=== PATIENT | male | born 2000 | race African-American/Black ===

== ENCOUNTER 2024-07-08 16:50 | Emergency (ER) | payer BC, SELFPAY ==
[2024-07-08 16:54] VITALS: BP 134/97; PULSE 129; RESP 20; TEMP 37; O2SAT 100; BMI 27.9
--- NOTE | 2024-07-08 17:02 | ED_ITS ---
HPI - General Adult General Chief complaint: Altered Mental Status Stated complaint: ?on drugs Time Seen by Provider: 07/08/24 17:13 Source: patient, family (Patient's mother) and RN notes reviewed Mode of arrival: ambulatory Limitations: no limitations History of Present Illness ED Provider: Neno MENDES narrative: 23-year-old male with no diagnosed medical history presents for evaluation of psychosis. The patient admits to using marijuana from an online service last . He reports that he has used this service in the past but used a different product that he smoked He reports feeling abnormally high on , 5 days ago Since that time, the patient has been paranoid however this has improved but he has not been sleeping Per his mother he has been ?more talkative. The patient denies any physical complaints He is not depressed or having any suicidal thoughts He admits that he is not sleeping well He denies any other substance abuse other than daily marijuana use Related Data Home Medications ?Medication ?Instructions ?Recorded ?Confirmed No Known Home Meds 07/08/24 07/08/24 Allergies Allergy/AdvReac Type Severity Reaction Status Date / Time No Known Allergies Allergy Verified 07/08/24 16:54 Review of Systems 2 Constitutional: Constitutional: Denies anorexia, Denies body ache(s), Denies chills and Denies fever(s) Eyes: Eyes: Denies blurry vision ENT: Denies vertigo Cardiovascular: Cardiovascular: Denies chest pain and Denies dyspnea Respiratory: Respiratory: Denies cough and Denies dyspnea Gastrointestinal: Gastrointestinal: Denies abdominal pain, Denies nausea and Denies vomiting Musculoskeletal: Musculoskeletal: Denies back pain Integumentary/Breasts: Skin/Breast: Denies rash Neurologic: Reports behavioral changes and Denies vertigo Psychiatric: Psychiatric: Reports anxiety, Reports behavioral changes, Denies change in appetite, Denies depression, Denies difficulty concentrating, Denies hopelessness, Denies irritability, Denies mood swings, Denies panic attacks, Reports paranoia, Denies visual hallucinations, Denies tactile hallucinations, Denies homicidal ideation and Denies suicidal ideation PMFSH Social History Social History Smoked in Last 30 Days: Yes Use of substances other than those prescribed or required for medical reasons: Yes Substance Use Type: Marijuana Substance Use Frequency: Chronic Longstanding Last Used Substance: Just Prior to Admission Advance Directives: No Advance Directives Information Provided: No Physical Exam ED Vital Signs: Vital Signs - 24 hr 07/08/24 16:54 07/08/24 17:21 07/08/24 19:14 Temperature 98.6 F 98.9 F 98 F Pulse Rate 129 H 132 H 105 H Respiratory Rate 20 16 16 Blood Pressure 134/97 H 156/95 H 151/83 H Pulse Oximetry 100 100 99 Oxygen Delivery Method Room Air Room Air Room Air 07/08/24 19:14 Temperature 98.3 F Pulse Rate 105 H Respiratory Rate 16 Blood Pressure 151/83 H Pulse Oximetry 99 Oxygen Delivery Method Room Air BMI result Body Mass Index 27.9 Const General: healthy appearing, comfortable, no acute distress, alert and awake Nutritional Appearance: well nourished Orientation/consciousness: patient oriented x3 HENMT Head: Yes normocephalic and Yes atraumatic Throat: Yes posterior oropharynx normal Eyes Eyelids: Yes eyelids normal Conjunctivae: conjunctivae normal Sclerae: sclerae normal Corneas: corneas normal Pupils: Equal, round and reactive pupils present EOM: EOMs intact bilaterally Neck Neck: Yes full ROM Resp Effort & Inspection: normal respiratory effort, able to speak in complete sentences and not labored Cardio Rate: regular rate Rhythm: regular rhythm GI Inspection: No distended Palpation (GI): Soft to palpation, not firm, nontender, no guarding and not rigid Skin General skin exam: elasticity normal Neuro General: patient oriented x3 Cranial nerves: Yes CN's II-XII intact bilaterally, Yes Equal, round and reactive pupils present and Yes Bilaterally intact EOM present Cognition (Neuro): normal cognition Extrem Other: Moving all extremities well without any obvious deformities Psych Appearance: well kempt Mental Status: mental status grossly normal Speech and movement: Pressured speech present Affect: normal affect Attitude: cooperative Thought process: Normal thought process present Thought content: Normal thought content present, suicidality, no homicidality and no delusions Insight: Fair insight present (Psych) Judgement: Fair judgement present (Psych) Course Course Course Narrative: RME: 23-year-old male presents to ED for new onset psychosis since after smoking weed that was shipped from online. Patient has auditory hallucinations. Mother states patient has been up for 3 days and being more talkative and not making sense. Patient is calm in during triage. Patient is brought back to pod Reevaluation(s) Reevaluation #1: Discussed with the care team, who felt the patient she had a least be staying overnight which I agree with. Again, it is unclear if this is cannabis induced psychosis versus a new diagnosis of bipolar or schizoaffective disorder. Time: 19:29 Medical Decision Making Medical Decision Making [facility] Narrative: 23-year-old male with no significant past medical history presents for evaluation of an acute psychotic episode. His symptoms have been present for 5 days but do appear to be improving per his mother. The patient no longer has any paranoia which she had initially on . He does seem somewhat manic with pressured speech. However he is calm and cooperative and in redirectable. The patient denies any depression, suicidal ideation or hallucinations. He was medically cleared and seen by the care team. It is still somewhat unclear if this is a cannabis induced psychosis or a new onset schizophrenia or bipolar disorder. I discussed with the patient's mother that I recommended an inpatient psychiatric stay to be evaluated by Psychiatry and possibly start on medications. The patient's mother is adamant the patient will not be staying over and does not want to start any medication at this time. The patient is deferring to his mother's wishes. Given that he is not suicidal, depressed at all and does not appear to be a danger to himself or anybody else, the patient will be discharged into the custody of his mother. They were given resources as I strongly recommended a psychiatric evaluation. I do feel that hospitalization will expedite his diagnosis and workup, however do not feel that he is a threat requiring a section 12 to be held against his well. I discussed with the mother at length of return precautions of went to bring the patient back to the ER for more emergent psychiatric evaluation Differential Diagnosis Differential Diagnoses: The differential diagnosis associated with the presentation includes Cannabis induced psychosis Schizophrenia Bipolar disorder Acute davey Admission/Observation Consideration of admission/observation: Escalation of care including admission/observation considered Lab Data [facility] Lab Attestation statement: I reviewed the patient's lab results. No leukocytosis or anemia. Normal platelet count. No electrolyte abnormalities. Random glucose elevated to 133. The patient has a mild transaminitis of unclear etiology. There was no abdominal pain or right upper quadrant tenderness to suggest biliary disease. Bilirubin within normal limits. 07/08/24 17:33 07/08/24 17:33 Labs: Lab Results 07/08/24 07/08/24 Range/Units 17:28 17:33 WBC 5.4 (4.8-10.8) X10*3/uL RBC 4.97 (4.60-5.80) X10*6/uL Hgb 14.8 (14.0-18.0) g/dl Hct 43.5 (42.0-52.0) % MCV 87.5 (80.0-98.0) fL MCH 29.8 (27.0-33.0) pg MCHC 34.0 (31.0-36.0) g/dl RDW 13.2 (11.0-16.0) % Plt Count 249 (160-400) X10*3/uL MPV 10.2 (9.4-12.4) fL Immature Gran % (Auto) 0.4 (0.0-0.4) % Neut % (Auto) 71.2 (45-73) % Lymph % (Auto) 17.9 L (20-40) % [place] % (Auto) 8.8 (2-11) % Eos % (Auto) 1.1 (0-4) % Baso % (Auto) 0.6 (0-2) % Lymph # (Auto) 1.0 L (1.2-4.9) X10*3/uL [place] # (Auto) 0.5 (0.1-1.2) X10*3/uL Eos # (Auto) 0.1 (0.0-0.4) X10*3/uL Baso # (Auto) 0.0 (0.0-0.2) X10*3/uL Abs Immat Gran (auto) 0.02 (0.00-0.03) X10*3/uL Absolute Neuts (auto) 3.9 (2.0-8.3) x10*3/uL Absolute Nucleated RBC 0.000 (0.0-0.012) X10*3/uL Nucleated RBC % (auto) 0.0 (0.0-0.2) /100WBC Sodium 140 (135-145) mmol/L Potassium 4.1 (3.3-5.1) mmol/L Chloride 105 (96-108) mmol/L Carbon Dioxide 27 (22-29) mmol/L Anion Gap 12 (12-20) BUN 12 (9-16) mg/dL Creatinine 1.05 (0.5-1.4) mg/dL Estim Creat Clear Calc 119.6 Estimated GFR > 60 Random Glucose 133 H (60-115) mg/dL Calcium 9.5 (8.4-10.2) mg/dL Total Bilirubin 0.4 (0.0-1.0) mg/dL AST 333 H (5-37) U/L ALT 91 H (0-40) U/L Alkaline Phosphatase 57 (39-117) U/L Total Protein 7.4 (6.5-8.0) g/dL Albumin 4.7 (3.5-5.0) g/dL Urine Color Yellow Urine Appearance Clear Urine pH 6.0 (5.0-9.0) Ur Specific [place] 1.015 (1.005-1.025) Urine Protein Trace (Neg-Trace) mg/dL Urine Glucose (UA) Negative (Negative) mg/dL Urine Ketones Negative (Negative) mg/dL Urine Blood Moderate (2+) H (Negative) Urine Nitrite Negative (Negative) Ur Leukocyte Esterase Negative (Negative) Urine RBC 11-20 H (0-2) /HPF Urine WBC 0-5 (0-5) /HPF Ur Squamous Epith Cells 0-2 (0-2) /HPF Urine Bacteria None Seen (None Seen) Hyaline Casts 0-2 (0-2) /LPF Urine Opiates Screen Not Detected (Not Detect) Ur Buprenorphine Scrn Not Detected (Not Detect) ng/mL Ur Oxycodone Screen Not Detected (Not Detect) ng/mL Urine Methadone Screen Not Detected (Not Detect) ng/mL Urine Fentanyl Screen Not Detected (Not Detect) Ur Barbiturates Screen Not Detected (Not Detect) Ur Phencyclidine Scrn Not Detected (Not Detect) Ur Amphetamines Screen Not Detected (Not Detect) U Benzodiazepines Scrn Not Detected (Not Detect) Urine Cocaine Screen Not Detected (Not Detect) U Marijuana (THC) Screen POSITIVE H (Not Detect) Ethyl Alcohol < 10 mg/dL Discharge Plan Discharge Clinical Impression: Acute psychosis Patient Disposition: Home, Self-Care Instructions: Psychotic Disorder (ED) Additional Instructions: It is possible that your psychosis is related to marijuana. It is also possible that in his due to an underlying psychiatric illness such as schizophrenia or bipolar disorder It is very important that you were seen by a psychiatrist Return for new or worsening symptoms Follow-up with your primary doctor Prescriptions: No Action No Known Home Meds Interventions: ED Discharge Assessment Last Done: 07/08/24 19:14 Discharge Date/Time: 07/08/24 19:43 Print Language: Swedish
[2024-07-08 17:21] VITALS: BP 156/95; PULSE 132; RESP 16; TEMP 37.2; O2SAT 100
--- NOTE | 2024-07-08 17:25 | PC.NURSE ---
Brayden comes in from home today accompanied by mom. Pts mom reports that patient smoked something on and since then he has been messed up . Pt reports not sleeping and being hyperverbal over the past few days. Pt is calm and cooperative, offering no complaints to this RN , Patient aware of plan of care for medical clearance and care team carter
[2024-07-08 17:37] LABS: Appearance Urine Clear; Color Urine Yellow; Glucose Urine UA Negative (Negative); Leukocyte Esterase Urine Negative (Negative); Nitrite Urine Negative (Negative); Specific Gravity - Urine 1.015 (1.005-1.025); UMIC TRIGGER UACC YES; Urine Blood Moderate (2+) (Negative); Urine Ketones Negative (Negative); Urine Protein Trace mg/dL (Neg-Trace)
[2024-07-08 17:40] LABS: MANUAL DIFF FLAG NO
[2024-07-08 17:41] LABS: Bacteria Urine None Seen (None Seen); Hyaline Casts Urine 0-2 /LPF (0-2); Squamous Epithelial Cell Urine 0-2 /HPF (0-2); WBC Urine 0-5 /HPF (0-5)
[2024-07-08 17:41] LABS: Basophils Percent Auto 0.6 % (0-2); Eosinophils Absolute Auto 0.1 X10*3/uL (0.0-0.4); Eosinophils Percent Auto 1.1 % (0-4); Hematocrit 43.5 % (42.0-52.0); Hemoglobin 14.8 g/dl (14.0-18.0); Imm Gran Abs Auto 0.02 X10*3/uL (0.00-0.03); Imm Gran Pct Auto 0.4 % (0.0-0.4); Lymphocytes Percent Auto 17.9 % (20-40); Mean Corpuscular Hemoglobin 29.8 pg (27.0-33.0); Mean Corpuscular Volume 87.5 fL (80.0-98.0); Mean Platelet Volume 10.2 fL (9.4-12.4); Monocytes Absolute Auto 0.5 X10*3/uL (0.1-1.2); Monocytes Percent Auto 8.8 % (2-11); Neutrophils Absolute Auto 3.9 x10*3/uL (2.0-8.3); Neutrophils Percent Auto 71.2 % (45-73); Platelet Count 249 X10*3/uL (160-400); Red Blood Count 4.97 X10*6/uL (4.60-5.80); Red Cell Distribution Width 13.2 % (11.0-16.0); White Blood Count 5.4 X10*3/uL (4.8-10.8)
[2024-07-08 17:50] LABS: Amphetamine Screen Urine Not Detected (Not Detect); Barbiturates, Urine Not Detected (Not Detect); Benzodiazepines Screen Urine Not Detected (Not Detect); Buprenorphine Scr Not Detected (Not Detect); Cannabinoid Screen Urine POSITIVE (Not Detect); Cocaine Screen Urine Not Detected (Not Detect); Fentanyl, urine Not Detected (Not Detect); Methadone Screen, Urine Not Detected (Not Detect); Opiate Screen Urine Not Detected (Not Detect); Oxycodone Screen Urine Not Detected (Not Detect); Phencyclidine Screen Urine Not Detected (Not Detect)
[2024-07-08 18:29] LABS: Alanine Aminotransferase 91 U/L (0-40); Albumin Level 4.7 g/dL (3.5-5.0); Anion Gap 12 (12-20); Aspartate Amino Transferase 333 U/L (5-37); Bilirubin Total 0.4 mg/dL (0.0-1.0); Blood Urea Nitrogen 12 mg/dL (9-16); Calcium 9.5 mg/dL (8.4-10.2); Carbon Dioxide 27 mmol/L (22-29); Chloride 105 mmol/L (96-108); Creatinine Clr Calc Pharmacy 119.6; Estimated Glomerular Filt Rate > 60; Ethanol < 10 mg/dL; Glucose Random 133 mg/dL (60-115); Potassium 4.1 mmol/L (3.3-5.1); Sodium 140 mmol/L (135-145); Total Protein 7.4 g/dL (6.5-8.0)
[2024-07-08 18:54] LABS: Alkaline Phosphatase 57 U/L (39-117)
[2024-07-08 19:14] VITALS: BP 151/83; PULSE 105; RESP 16; TEMP 36.6; TEMP 36.8; O2SAT 99
== END 2024-07-08 19:43 | disposition home or self-care (01) ==
PROVIDERS: Physician Assistant; Emergency Provider Internal Medicine
DX: F23 Brief psychotic disorder (principal); F12.90 Cannabis use, unspecified, uncomplicated
CPT/HCPCS: 36415; 80053; 80307; 81001; 85025; 99284; S9485

== ENCOUNTER 2024-07-10 09:33 | Inpatient (IN) | payer OTHER, SELFPAY ==
--- NOTE | ~2024-07-10 | US_ITS ---
EXAMINATION: US ABDOMEN LIMITED HISTORY: Elevated LFTs TECHNIQUE: Real-time grayscale ultrasound imaging of the right upper quadrant was performed and images were reviewed. COMPARISON: There are no prior studies for comparison. FINDINGS: Liver: The liver is normal in size. The liver demonstrates normal homogeneous echotexture. No focal mass or intrahepatic biliary ductal dilatation is identified. There is normal hepatopedal flow in the portal vein. Gallbladder and biliary tree: The gallbladder is unremarkable, without evidence of calculi, wall thickening, or pericholecystic fluid. There is no sonographic Mejia sign. The common bile duct is normal in caliber measuring 3 mm. Right Kidney: The right kidney measures 10.1 cm in length. The right kidney is unremarkable, without evidence of masses, hydronephrosis, or calculi. Pancreas: The pancreatic head, neck, and body are unremarkable. The pancreatic tail is obscured by bowel gas. Abdominal aorta and inferior vena cava: The visualized portions of the abdominal aorta and inferior vena cava are normal in caliber. There is no free fluid in the right upper quadrant. US/US abdomen limited IMPRESSION: Unremarkable right upper quadrant ultrasound. Electronically signed by: Ciro Campa MD 07/10/2024 01:25 PM EDT
[2024-07-10 09:40] VITALS: BP 165/87; PULSE 130; RESP 18; TEMP 37.1; O2SAT 99; BMI 27.4
--- NOTE | 2024-07-10 09:44 | ECG_ITS ---
Test Reason : tachycardia Blood Pressure : */* mmHG Vent. Rate : 115 BPM Atrial Rate : 115 BPM P-R Int : 118 ms QRS Dur : 72 ms QT Int : 312 ms P-R-T Axes : 86 74 29 degrees QTcB Int : 431 ms Sinus tachycardia Otherwise normal ECG No previous ECGs available Referred By: Generic ED Physician Electronically Signed By: SEGUN JOHNSON
--- NOTE | 2024-07-10 09:53 | ED_ITS ---
HPI - General Adult General Chief complaint: Recheck/Abnormal Lab/Rx Stated complaint: Insomnia, heart racing Time Seen by Provider: 07/10/24 09:53 Source: patient and family (patient's mother) Mode of arrival: ambulatory Limitations: no limitations History of Present Illness ED Provider: Rosangela Betancourt PA-C HPI narrative: Patient is a 23 year old assigned male at with a history of marijuana use presenting to the emergency department today with inability to sleep and pressured speech. Patient states that he smoked weed on 07/03/2024 that he believes to be different than the usual weed he smokes. He states that ever since then he has been unable to sleep and has been acting differently per his mother. Per his mother has had pressured speech, speaking rapidly, and acting unusual. Patient denies any thoughts of hurting himself or others, dizziness, lightheadedness, abdominal pain, nausea, vomiting, fever, chills, blurry vision, double vision, loss of vision, chest pain, difficulty breathing, shortness of breath, back pain, night sweats, pain with urination, increased urinary frequency, increased urinary urgency, blood in his urine or stool, syncope or a near syncopal episode, recent trauma or falls, bowel incontinence, bladder incontinence, or any other complaints at this time. Onset (ago): week(s) (1) Relieving factors: none Exacerbating factors: none Associated symptoms: denies other symptoms Treatments prior to arrival: other (Benadryl with no relief) Related Data Home Medications ?Medication ?Instructions ?Recorded ?Confirmed diphenhydramine HCl 12.5 mg/5 mL 25 mg PO BEDTIME PRN Sleep 07/10/24 07/10/24 oral liquid multivitamin 1 tab PO DAILY 07/10/24 07/10/24 Allergies Allergy/AdvReac Type Severity Reaction Status Date / Time No Known Allergies Allergy Verified 07/10/24 09:43 Review of Systems 2 Constitutional: Constitutional: Reports no additional constitutional complaints, Denies chills, Denies fever(s) and Denies night sweats Eyes: Eyes: Reports no additional eye complaints, Denies blurry vision, Denies change in vision, Denies diplopia, Denies eye discharge, Denies loss of vision and Denies eye pain ENT: Denies dizziness Cardiovascular: Cardiovascular: Reports no additional cardiovascular complaints, Denies chest pain, Denies lightheadedness, Denies Loss of Consciousness and Denies dyspnea Respiratory: Respiratory: Reports no additional respiratory complaints and Denies dyspnea Gastrointestinal: Gastrointestinal: Reports no additional gastrointestinal complaints, Denies abdominal pain, Denies melena, Denies hematochezia, Denies change in bowel habits and Denies change in stool character Genitourinary: Genitourinary: Reports no additional male genitourinary complaints, Denies hematuria, Denies oliguria, Denies difficulty urinating, Denies dysuria, Denies urinary frequency, Denies urinary hesitancy, Denies urinary incontinence and Denies urinary urgency Musculoskeletal: Musculoskeletal: Reports no additional musculoskeletal complaints, Denies numbness and Denies tingling Neurologic: Reports behavioral changes, Denies dizziness, Denies loss of vision, Denies numbness and Denies tingling Psychiatric: Psychiatric: Reports abnormal sleep pattern, Reports behavioral changes and Reports difficulty concentrating Comments: pressured speech Endocrine: Endocrine: Reports no additional endocrine complaints Hematologic/Lymphatic: Hematologic/Lymphatic: Reports no additional hematologic/lymphatic complaints Allergic/Immunologic: Allergic/Immunologic: Reports no additional allergic/immunologic complaints PMFSH Past Medical History Attestation statement: The following information was validated with the patient. (all information validated with the patient's mother) Source: old records reviewed, obtained from family (patient's mother provided additional history and confirmed the history provided by the patient) and nursing notes reviewed Social History Social History Patient Tobacco Use Status: Never used Tobacco Smoked in Last 30 Days: No Use of substances other than those prescribed or required for medical reasons: Yes Substance Use Type: Marijuana Substance Use Frequency: Chronic Longstanding Last Used Substance: Unknown Any prior treatment program specific to substance use: No Advance Directives: No Advance Directives Information Provided: Yes Nutrition Risks: No Nutritional Risk Physical Exam ED Vital Signs: Vital Signs - 24 hr 07/10/24 09:40 07/10/24 12:54 Temperature 98.7 F 98.5 F Pulse Rate 130 H 103 H Respiratory Rate 18 16 Blood Pressure 165/87 H 111/67 Pulse Oximetry 99 100 Oxygen Delivery Method Room Air Room Air BMI result Body Mass Index 27.4 Const General: cooperative, no acute distress, alert and awake Nutritional Appearance: well nourished Orientation/consciousness: patient oriented x3 HENNY Head: Yes normal to inspection and Yes atraumatic Ears: hearing grossly normal bilaterally and external ears normal General nose exam: Normal external nose present, no nasal discharge noted and no epistaxis Face and sinus: Yes normal facial exam, No abrasion and No laceration Mouth: Normal oral and palatal mucosa present, no drooling and no muffled voice Eyes General: appearance normal, both eyes and all related structures Periorbital: periorbital findings normal Eyelids: Yes eyelids normal Conjunctivae: conjunctivae normal Pupils: Equal, round and reactive pupils present EOM: EOMs intact bilaterally Neck Neck: Yes normal visual inspection, Yes full ROM and Yes no lymphadenopathy Resp Effort & Inspection: normal respiratory effort and able to speak in complete sentences Cardio Rate: tachycardic Rhythm: regular rhythm Neuro General: patient oriented x3, moves all extremities and CN's II-XI intact bilaterally Cranial nerves: Yes Equal, round and reactive pupils present Cognition (Neuro): normal cognition Extrem General: Yes normal to inspection, Yes full ROM and Yes capillary refill normal Psych Appearance: grossly normal Mental Status: mental status grossly normal Speech and movement: Pressured speech present Affect: Labile affect present Attitude: cooperative Thought process: Flight of ideas present and Racing thoughts present Medications Administered Discontinued Medications Generic Name Dose Route Start Last Admin Trade Name Freq PRN Reason Stop Dose Admin Sodium Chloride 1,000 mls @ 999 mls/hr 07/10/24 10:00 07/10/24 12:00 Ns IV 07/10/24 11:00 Infused .Q1H1M DANIELLE Infusion Lorazepam 2 mg 07/10/24 09:53 07/10/24 10:19 Lorazepam 1 Mg Tablet PO 07/10/24 09:54 2 mg ONCE ONE Administration Medical Decision Making Medical Decision Making [facility] Narrative: Patient is a 23 year old assigned male at with a history of marijuana use presenting to the emergency department today with inability to sleep and pressured speech. Patient's physical exam was as noted in the physical exam portion of this note. Patient's blood work showed elevated AST of 438 and ALT of 140 - these are higher than those reported on 07/08/2024 of AST 333 and ALT 91. Patient's ammonia was 58. Patient's urine showed no acute process. Patient's EKG was unremarkable. Patient's RUQ US showed no acute process. I consulted with the GI team who recommended medical admission for continued LFT monitoring / trending. I did consult with psychiatry who stated they would follow the patient while inpatient. I spoke with the hospitalist team who agreed to admission. I explained my physical exam findings as well as all test results to the patient and the patient's mother. I answered all questions asked by the patient and the patient's mother. Patient received PO Ativan which, upon re-evaluation, it helped the patient significantly by allowing him to sleep. Patient and the patient's mother verbalized agreement and understanding with this treatment plan and discharge. Differential Diagnosis Differential Diagnoses: The differential diagnosis associated with the presentation includes New davey New bipolar disorder Elevated LFTs Marijuana use Admission/Observation Consideration of admission/observation: Escalation of care including admission/observation considered Patient admitted as noted in the MDM Rationale portion of this note. Consult Healthcare Provider Management of the patient was discussed with: Hospitalist (agreed to admission as noted in the MDM Rationale portion of this note. ), Warehouse Specialist (spoke with the GI specialist as noted in the MDM Rationale portion of this note. ) and Behavioral Health Provider (spoke with psychiatry as noted in the MDM Rationale portion of this note. ) Lab Data [facility] Lab Attestation statement: I reviewed the patient's lab results. My interpretation of these results are in the MDM Rationale portion of this note. 07/10/24 10:13 07/10/24 10:13 Labs: Lab Results 07/10/24 07/10/24 07/10/24 Range/Units 10:12 10:13 12:24 WBC 7.3 (4.8-10.8) X10*3/uL RBC 4.88 (4.60-5.80) X10*6/uL Hgb 14.6 (14.0-18.0) g/dl Hct 41.8 L (42.0-52.0) % MCV 85.7 (80.0-98.0) fL MCH 29.9 (27.0-33.0) pg MCHC 34.9 (31.0-36.0) g/dl RDW 13.2 (11.0-16.0) % Plt Count 274 (160-400) X10*3/uL MPV 10.0 (9.4-12.4) fL Immature Gran % (Auto) 0.3 (0.0-0.4) % Neut % (Auto) 73.5 H (45-73) % Lymph % (Auto) 17.4 L (20-40) % [place] % (Auto) 8.2 (2-11) % Eos % (Auto) 0.3 (0-4) % Baso % (Auto) 0.3 (0-2) % Lymph # (Auto) 1.3 (1.2-4.9) X10*3/uL [place] # (Auto) 0.6 (0.1-1.2) X10*3/uL Eos # (Auto) 0.0 (0.0-0.4) X10*3/uL Baso # (Auto) 0.0 (0.0-0.2) X10*3/uL Abs Immat Gran (auto) 0.02 (0.00-0.03) X10*3/uL Absolute Neuts (auto) 5.4 (2.0-8.3) x10*3/uL Absolute Nucleated RBC 0.000 (0.0-0.012) X10*3/uL Nucleated RBC % (auto) 0.0 (0.0-0.2) /100WBC Sodium 139 (135-145) mmol/L Potassium 3.5 (3.3-5.1) mmol/L Chloride 105 (96-108) mmol/L Carbon Dioxide 24 (22-29) mmol/L Anion Gap 14 (12-20) BUN 12 (9-16) mg/dL Creatinine 1.00 (0.5-1.4) mg/dL Estim Creat Clear Calc 115.8 Estimated GFR > 60 Random Glucose 100 (60-115) mg/dL Calcium 9.8 (8.4-10.2) mg/dL Magnesium 1.9 (1.6-2.6) mg/dL Total Bilirubin 0.8 (0.0-1.0) mg/dL AST 438 H (5-37) U/L ALT 140 H (0-40) U/L Alkaline Phosphatase 51 (39-117) U/L Ammonia 58 H (13-55) umol/L Troponin I High Sens < 2.7 (<3.5-35.0) ng/L Total Protein 7.8 (6.5-8.0) g/dL Albumin 4.9 (3.5-5.0) g/dL Urine Color Yellow Urine Appearance Clear Urine pH 6.0 (5.0-9.0) Ur Specific [place] 1.015 (1.005-1.025) Urine Protein Trace (Neg-Trace) mg/dL Urine Glucose (UA) Negative (Negative) mg/dL Urine Ketones 40 (Negative) mg/dL Urine Blood Moderate (2+) H (Negative) Urine Nitrite Negative (Negative) Ur Leukocyte Esterase Negative (Negative) Urine RBC 6-10 H (0-2) /HPF Urine WBC 0-5 (0-5) /HPF Ur Squamous Epith Cells 0-2 (0-2) /HPF Urine Bacteria None Seen (None Seen) Hyaline Casts 0-2 (0-2) /LPF Salicylates < 5.0 L (15-30) mg/dL Urine Opiates Screen Not Detected (Not Detect) Ur Buprenorphine Scrn Not Detected (Not Detect) ng/mL Ur Oxycodone Screen Not Detected (Not Detect) ng/mL Urine Methadone Screen Not Detected (Not Detect) ng/mL Urine Fentanyl Screen Not Detected (Not Detect) Acetaminophen < 3 (<30) mcg/mL Ur Barbiturates Screen Not Detected (Not Detect) Ur Phencyclidine Scrn Not Detected (Not Detect) Ur Amphetamines Screen Not Detected (Not Detect) U Benzodiazepines Scrn Not Detected (Not Detect) Urine Cocaine Screen Not Detected (Not Detect) U Marijuana (THC) Screen Not Detected (Not Detect) Hepatitis A IgM Ab Nonreactive (Nonreactive) Hep Bs Antigen Negative (Negative) Hep Bs Antibody REACTIVE (Nonreactive) Hep B Core Total Ab Nonreactive (Nonreactive) Hepatitis C Ab (EIA) Nonreactive (Nonreactive) Independent Interpretation I performed an independent interpretation of an: Ultrasound Interpretation: My interpretation is in agreement with the radiologist's impression of this imaging study. L EXAMINATION: US ABDOMEN LIMITED HISTORY: Elevated LFTs TECHNIQUE: Real-time grayscale ultrasound imaging of the right upper quadrant was performed and images were reviewed. COMPARISON: There are no prior studies for comparison. FINDINGS: Liver: The liver is normal in size. The liver demonstrates normal homogeneous echotexture. No focal mass or intrahepatic biliary ductal dilatation is identified. There is normal hepatopedal flow in the portal vein. Gallbladder and biliary tree: The gallbladder is unremarkable, without evidence of calculi, wall thickening, or pericholecystic fluid. There is no sonographic Mejia sign. The common bile duct is normal in caliber measuring 3 mm. Right Kidney: The right kidney measures 10.1 cm in length. The right kidney is unremarkable, without evidence of masses, hydronephrosis, or calculi. Pancreas: The pancreatic head, neck, and body are unremarkable. The pancreatic tail is obscured by bowel gas. Abdominal aorta and inferior vena cava: The visualized portions of the abdominal aorta and inferior vena cava are normal in caliber. There is no free fluid in the right upper quadrant. US/US abdomen limited IMPRESSION: Unremarkable right upper quadrant ultrasound. Electronically signed by: Ciro Campa MD 07/10/2024 01:25 PM EDT Dictated By: Ciro Campa MD Signed By: Electronically signed by Ciro Campa MD 07/10/24 1325 I independently interpreted this EKG and am in agreement with the below findings: Vent. Rate: 115 BPM Atrial Rate: 115 BPM P-R Int: 118 ms QRS Dur: 72 ms QT Int: 312 ms P-R-T Axes: 86 74 29 degrees QTcB Int: 431 ms Sinus tachycardia Otherwise normal ECG No previous ECGs available DD/ [id number] Radiology Impression Discussion of test interpretation with radiology: I have reviewed the radiologist's reading. Independent Historian Clinical information obtained from an independent historian. History obtained from or confirmed by: Parent (patient's mother provided additional history and confirmed the history provided by the patient.) Critical Care Time Critical Care Time Critical Care Time: Yes Total Critical Care Time: 41 Attestation: I spent 41 minutes of Critical Care Time with this patient. This does not include time spent on separately reported billable procedures. Discharge Plan Discharge Clinical Impression: Elevated LFTs, Psychosis Patient Disposition: Admitted As Inpatient
--- NOTE | 2024-07-10 10:09 | PC.NURSE ---
Pt pleasant, cooperative, hyperverbal; parent at bedside; pt denies SI/HI at this time; HR 110 ST per monitor; pt denies CP/SOB/dizziness; PA-C at bedside to examine pt; will monitor/tx per orders
[2024-07-10] MEDS: LORazepam 1 MG TABLET 2 MG PO (10:19)
[2024-07-10 10:20] LABS: MANUAL DIFF FLAG NO
[2024-07-10 10:21] LABS: Basophils Percent Auto 0.3 % (0-2); Eosinophils Percent Auto 0.3 % (0-4); Hematocrit 41.8 % (42.0-52.0); Hemoglobin 14.6 g/dl (14.0-18.0); Imm Gran Abs Auto 0.02 X10*3/uL (0.00-0.03); Imm Gran Pct Auto 0.3 % (0.0-0.4); Lymphocytes Absolute Auto 1.3 X10*3/uL (1.2-4.9); Lymphocytes Percent Auto 17.4 % (20-40); Mean Corpuscular HGB Conc 34.9 g/dl (31.0-36.0); Mean Corpuscular Hemoglobin 29.9 pg (27.0-33.0); Mean Corpuscular Volume 85.7 fL (80.0-98.0); Monocytes Absolute Auto 0.6 X10*3/uL (0.1-1.2); Monocytes Percent Auto 8.2 % (2-11); Neutrophils Absolute Auto 5.4 x10*3/uL (2.0-8.3); Neutrophils Percent Auto 73.5 % (45-73); Platelet Count 274 X10*3/uL (160-400); Red Blood Count 4.88 X10*6/uL (4.60-5.80); Red Cell Distribution Width 13.2 % (11.0-16.0); White Blood Count 7.3 X10*3/uL (4.8-10.8)
[2024-07-10] MEDS: 0.9 % Sodium Chloride 1,000 ML 999 ML IV (10:21)
[2024-07-10 10:32] LABS: Appearance Urine Clear; Color Urine Yellow; Glucose Urine UA Negative (Negative); Leukocyte Esterase Urine Negative (Negative); Nitrite Urine Negative (Negative); Specific Gravity - Urine 1.015 (1.005-1.025); UMIC TRIGGER UACC YES; Urine Blood Moderate (2+) (Negative); Urine Ketones 40 mg/dL (Negative); Urine Protein Trace mg/dL (Neg-Trace)
[2024-07-10 10:34] LABS: Bacteria Urine None Seen (None Seen); Hyaline Casts Urine 0-2 /LPF (0-2); Squamous Epithelial Cell Urine 0-2 /HPF (0-2); WBC Urine 0-5 /HPF (0-5)
[2024-07-10 10:38] LABS: Amphetamine Screen Urine Not Detected (Not Detect); Barbiturates, Urine Not Detected (Not Detect); Benzodiazepines Screen Urine Not Detected (Not Detect); Buprenorphine Scr Not Detected (Not Detect); Cannabinoid Screen Urine Not Detected (Not Detect); Cocaine Screen Urine Not Detected (Not Detect); Fentanyl, urine Not Detected (Not Detect); Methadone Screen, Urine Not Detected (Not Detect); Opiate Screen Urine Not Detected (Not Detect); Oxycodone Screen Urine Not Detected (Not Detect); Phencyclidine Screen Urine Not Detected (Not Detect)
[2024-07-10 10:38] LABS: Alanine Aminotransferase 140 U/L (0-40); Albumin Level 4.9 g/dL (3.5-5.0); Alkaline Phosphatase 51 U/L (39-117); Anion Gap 14 (12-20); Aspartate Amino Transferase 438 U/L (5-37); Bilirubin Total 0.8 mg/dL (0.0-1.0); Blood Urea Nitrogen 12 mg/dL (9-16); Calcium 9.8 mg/dL (8.4-10.2); Carbon Dioxide 24 mmol/L (22-29); Chloride 105 mmol/L (96-108); Creatinine Clr Calc Pharmacy 115.8; Estimated Glomerular Filt Rate > 60; Glucose Random 100 mg/dL (60-115); Magnesium 1.9 mg/dL (1.6-2.6); Potassium 3.5 mmol/L (3.3-5.1); Sodium 139 mmol/L (135-145); Total Protein 7.8 g/dL (6.5-8.0)
[2024-07-10 10:48] LABS: Troponin-I High Sensitivity < 2.7 ng/L (<3.5-35.0)
--- OUTSIDE RECORDS SUMMARY | 2024-07-10 11:46 | XMS_ITS | Clinical Summary ---
Author Organization [facility] Address [address] [place] [address] Phone Care Team Providers Care Grain Shipper Name Role Phone Physician, Pcp Unknown Primary Care Provider Shirin vailable Allergies No known active allergies Encounters Date Type Department Care Team Description 07/03/2024 7:13 PM EDT - 07/03/2024 9:[address] [facility] [address] [place] [address] Iban Mathias MD Adverse effect of cannabis, initial encounter (Primary Dx) Discharge Disposition: Home or Self Care from Last 3 Months Social History Tobacco Use Types Packs/Day Years Used Date Smoking Tobacco: Never Assessed Sex and Gender Information Value Date Recorded Sex Assigned at Not on file Legal Sex Male 8:58 PM EST Gender Identity Not on file Sexual Orientation Not on file Obstetrics History Last Filed Vital Signs Vital Sign Reading Time Taken Comments Blood Pressure 147/77 07/03/2024 9:32 PM EDT Pulse 111 07/03/2024 9:32 PM EDT Temperature 36.8 ??C (98.3 ??F) 07/03/2024 9:32 PM ED T Respiratory Rate 16 07/03/2024 9:32 PM EDT Oxygen Saturation 100% 07/03/2024 9:32 PM EDT Inhaled Oxygen Concentration - - Weight 81.6 kg (180 lb) 07/03/2024 7:07 PM EDT Height 175.3 cm (5' 9 ) 07/03/2024 7:07 PM EDT Body Mass Index 26.58 07/03/2024 7:07 PM EDT Plan of Treatment Health Maintenance Due Date Last Done Comments HPV Vaccines (1 - Male 3-dose series) 2016 Meningococcal B Vaccine (1 of 2 - Standard) 2017 Depression Screening 03/30/2023 HIV Screening 03/30/2023 Hepatitis C Screening 03/30/2023 Social Influencers of Health Screening 03/30/2023 COVID-19 Vaccine (3 - season) 2023 09/14/2020, 08/24/2020 DTaP,Tdap,and Td Vaccines (7 - Td or Tdap) 07/17/2024 07/17/2014, 02/09/2010, 08/20/2003, Additional history exists Influenza Vaccine (Season Ended) 2024 Hepatitis B Vaccines Completed 04/02/2003, 12/01/2002, 09/16/2002 MMR Vaccines Completed 09/21/2009, 12/29/2002 IPV Vaccines Completed 02/09/2010, 08/03, 07/15/2002, Additional history exists Varicella Vaccines Completed 02/25/2013, 09/21/2009 Meningococcal ACWY Vaccine Completed 05/21, 07/17/2014, 02/25/2013 HIB Vaccines Aged Out No longer eligi ble based on patient's age to complete this topic Hepatitis A Vaccines Aged Out No long er eligible based on patient's age to complete this topic Pneumococcal Vaccine: Pediatrics (0 to 5 Years) and At-Risk Patients (6 to 64 Years) Aged Out No longer eligible based on patient's age to complete this topic RSV Immunization Patients Under 20 months Aged Out No longer eligible based on patient's age to complete this topic Procedures Procedure Name Priority Date/Time Associated Diagnosis Comments ECG ANNOTATED 07/04/2024 DRUG ABUSE SCREEN 8A PANEL, URINE STAT 07/03/2024 9:09 PM EDT ECG 12-LEAD STAT 07/03/2024 7:12 PM EDT from Last 3 Months Results * ECG-Annotated (07/04/2024) us Provider Onbase MD ECG ORDERABLES Final Result * (ABNORMAL) Drug abuse screen 8a panel, urine (07/03/2024 9:09 PM EDT) Amphetamine Screen, Ur Negative Negative LAB CHEMISTRY METHOD 5 10:01 PM [facility] Comment:Certain OTC medicati ons containing ephedrine, phenylephrine, pseudoephedrine and phenylpropanolamine can cause false positive results. Barbiturate Screen, Ur Negative Negative LAB CHEMISTRY METHOD 5 10:01 PM [facility] Benzodiazepine Screen, Ur Negative Negative LAB CHEMISTRY METHOD 5 10:01 PM [facility] Cocaine Screen, Ur Negative Negative LAB CHEMISTRY METHOD 5 10:01 PM [facility] Opiate Screen, Ur Negative Negative LAB CHEMISTRY METHOD 5 10:01 PM [facility] Cannabinoid (THC) Screen, Ur Positive(A ) Negative LAB CHEMISTRY METHOD 5 10:01 PM [facility] Comment:Specimens from patie nts taking pantoprazole sodium (Protonix) have been shown to produce false positive results. Oxycodone Screen, Ur Negative Negative LAB CHEMISTRY METHOD 5 10:01 PM [facility] Fentanyl, Ur Negative Negative LAB CHEMISTRY METHOD 5 10:01 PM [facility] Urine Urine specimen obtained by clean catch procedure / Unknown Non-blood Collection / Unknown 07/03/2024 9:09 PM EDT 07/03/2024 9:29 PM EDT [facility] - 07/03/2024 10:01 PM EDT Assay cutoffs: Amphetamines ? 1000 ng/mL Barbiturates ?200 ng/mL Benzodiazepines ?? 200 ng/mL Cocaine ? 300 ng/mL Fentanyl ?1 ng/mL Opiates ? 300 ng/mL Oxycodone ? 100 ng/mL THC ?50 ng/mL Semi-quantitative assay for screening purposes only. Unconfirmed screening result should not be used for non-medical purposes. *ALTERNATE METHOD CONFIRMATION DONE UPON REQUEST ONLY* Iban Mathias MD LAB URINE ORDERABLES Final Result Performing Organization Address City/[facility] Co de Phone Number [facility] [address] [place] [address], * ECG 12 lead (07/03/2024 7:12 PM EDT) Ventricular Rate ECG 119 BPM G[facility] Atrial Rate 119 BPM GEMUSE P-R Interval 120 ms GEMUSE QRS Duration 78 ms GEMUSE Q-T Interval 304 ms GEMUSE QTc 427 ms GEMUSE P Wave Opal 76 degrees GEMUSE R Opal 67 degrees GEMUSE T Opal 26 degrees GEMUSE ECG Interpretation Sinus tachycardia Otherwise normal ECG No previous ECGs available Confirmed by ESSIE ELLIOTT ([id number]) on 07/05/2024 6:59:33 AM G[facility] 07/03/2024 7:12 PM EDT 07/05/2024 6:59 AM EDT Iban Mathias MD ECG ORDERABLES Final Resul t Performing Organization Address City/[facility]/ZIP Co de Phone Number [facility] from Last 3 Months Insurance [employer] [facility] Care Teams Grain Shipper Relationship Specialty Start Date End Date Physician, Pcp Unknown PCP - General 07/03/24
[2024-07-10 12:36] LABS: Ammonia 58 umol/L (13-55)
[2024-07-10 12:49] LABS: Acetaminophen LAB < 3 mcg/mL (<30); Salicylate < 5.0 mg/dL (15-30)
[2024-07-10 12:54] VITALS: BP 111/67; PULSE 103; RESP 16; TEMP 36.9; O2SAT 100
[2024-07-10 13:10] LABS: HBS Num1 16.64 mIU/mL (0-7.99); HBc Num1 0.04 S/CO (0.00-0.79); HBsAGNum1 0.31 S/CO (0.00-0.99); Hepatitis A Antibody IgM 0.14 Index (0-0.79); Hepatitis B Core Antibody Nonreactive (Nonreactive); Hepatitis B Surface Antigen Negative (Negative); ~HepC Num1 0.14 S/CO (0.00-0.79); ~Hepatitis A Antibody IgM Nonreactive (Nonreactive); ~Hepatitis B Surface Antibody REACTIVE (Nonreactive); ~Hepatitis C Antibody Nonreactive (Nonreactive)
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
--- NOTE | 2024-07-10 14:27 | PHA.MEDREC ---
Pharmacy Consult ? Medication Reconciliation Pharmacy has completed the medication reconciliation. Spoke to patient and mother at bedside to confirm med list.
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
[2024-07-10 14:50] LABS: Ethanol < 10 mg/dL
[2024-07-10 15:45] VITALS: BP 105/66; PULSE 103; RESP 16; TEMP 36.9; O2SAT 100
[2024-07-10] MEDS: Lactated Ringers 1,000 ML 150 ML IVCONT ×2 (15:48→22:13)
[2024-07-10 17:11] LABS: Lactic Acid 0.8 mmol/L (0.5-2.0)
[2024-07-10 17:27] LABS: Lactate Dehydrogenase 966 U/L (118-273)
--- NOTE | 2024-07-10 18:23 | PC.NURSE ---
patient re-evaled by JG Cherry after finding Sec 12a in chart from ED provider. pt determined to be minimal flight risk with no need for a 1:1 sitter - rec video monitoring. pt denies SI/HI and acting appropriately at the time of re-eval.
--- NOTE | 2024-07-10 18:31 | PC.NURSE ---
A section [address] Mahmood in chart, incomplete; section 12 was not communicated to RN, technical support internship or supercharger repair supervisor; pt was not on a safety watch for entire visit in ER; mother was at pt's bedside; belongings remained at bedside (phone, clothing); section discovered in chart upon time of transfer ; this MD was on his first day with [facility], noted; supercharger repair supervisor made aware and admitting MD will rectify; a sitter will be provided upstairs; pt/pt made aware and understand
[2024-07-10 18:50] VITALS: BP 154/96; PULSE 116; RESP 18; TEMP 37.2; O2SAT 100
[2024-07-10 19:50] LABS: Cholesterol 131 mg/dL (<200); HDL Cholesterol 54 mg/dL (>40); LDL Cholesterol Calculated 71 mg/dL (<100); Triglycerides 34 mg/dL (<150)
[2024-07-10 20:04] LABS: TSH reflex Free T4 1.05 uIU/mL (0.32-4.0)
[2024-07-10 20:18] LABS: Folate 13.7 ng/mL (> or = 4.0); Vitamin B12 561 pg/mL (200-900)
[2024-07-10 21:55] VITALS: PULSE 108
[2024-07-10] MEDS: LORazepam 0.5 MG TABLET PO (22:09)
--- NOTE | 2024-07-11 | ECG_ITS ---
Test Reason : tachy Blood Pressure : */* mmHG Vent. Rate : 111 BPM Atrial Rate : 111 BPM P-R Int : 116 ms QRS Dur : 74 ms QT Int : 306 ms P-R-T Axes : 78 69 34 degrees QTcB Int : 416 ms Sinus tachycardia Otherwise normal ECG When compared with ECG of 10-Jul-2024 09:44, No significant change was found Referred By: Christopher Stroud Electronically Signed By: SEGUN JOHNSON
[2024-07-11 03:11] VITALS: BP 125/84; PULSE 102; RESP 16; TEMP 36.1; O2SAT 99
[2024-07-11 06:19] LABS: Estimated Average Glucose 103 mg/dL; Hemoglobin A1C 125.8737 umol/L; Hemoglobin A1c % 5.2 % (<6.0); Total Hemoglobin (HGBA1C) 3796.1475 umol/L
[2024-07-11 07:17] VITALS: BP 132/88; PULSE 111; RESP 18; TEMP 36.9; O2SAT 100
[2024-07-11] MEDS: Multivitamin TABLET 1 TAB PO (08:02)
[2024-07-11] MEDS: risperiDONE 0.5 MG TABLET PO ×2 (08:05→23:35)
[2024-07-11 08:19] LABS: Hematocrit 44.4 % (42.0-52.0); Hemoglobin 15.1 g/dl (14.0-18.0); Mean Corpuscular Hemoglobin 29.5 pg (27.0-33.0); Mean Corpuscular Volume 86.9 fL (80.0-98.0); Mean Platelet Volume 10.1 fL (9.4-12.4); Platelet Count 279 X10*3/uL (160-400); Red Blood Count 5.11 X10*6/uL (4.60-5.80); Red Cell Distribution Width 13.1 % (11.0-16.0); White Blood Count 4.9 X10*3/uL (4.8-10.8)
[2024-07-11 08:27] LABS: INTERNATIONAL NORM RATIO 1.1 (0.9-1.1); Prothrombin Time 13.1 SEC (10.9-12.4)
[2024-07-11 08:50] LABS: Alanine Aminotransferase 132 U/L (0-40); Albumin Level 4.9 g/dL (3.5-5.0); Alkaline Phosphatase 50 U/L (39-117); Aspartate Amino Transferase 286 U/L (5-37); Bilirubin Total 0.7 mg/dL (0.0-1.0); Blood Urea Nitrogen 9 mg/dL (9-16); Calcium 10.1 mg/dL (8.4-10.2); Creatinine Clr Calc Pharmacy 111.4; Estimated Glomerular Filt Rate > 60; Glucose Random 130 mg/dL (60-115); Total Protein 7.8 g/dL (6.5-8.0)
[2024-07-11 09:08] LABS: Anion Gap 15 (12-20); Carbon Dioxide 27 mmol/L (22-29); Chloride 102 mmol/L (96-108); Potassium 4.6 mmol/L (3.3-5.1); Sodium 139 mmol/L (135-145)
--- NOTE | 2024-07-11 09:50 | P.PNIM_ITS ---
Subjective Subjective Date of Service: 07/11/24 Interval History: no comlaints Physical Exam 2 Vital Signs: Vital Signs: Last Vital Signs Temp 98.4 F 07/11/24 07:17 Pulse 111 H 07/11/24 07:17 Resp 18 07/11/24 07:17 BP 132/88 07/11/24 07:17 Pulse Ox 100 07/11/24 07:17 O2 Del Method Room Air 07/11/24 07:17 BMI result Body Mass Index 27.4 General: AO X 3, no acute distress Resp: CTA bilateral, no accessory muscles used CVS: S1,S2,RRR GI: soft, non tender, non distended Neuro: motor grossly intact, alert Psych: appropriate affect, appropriate insight Objective Data Active Medications Acetaminophen (Acetaminophen 325 Mg Tablet) 650 mg PO Q6H PRN PRN Reason: Pain, Mild 1-3,fever,headache Calcium Carbonate (Calcium Carbonate 750 Mg Tab.Chew) 750 mg PO Q4H PRN PRN Reason: Heartburn Lactated Ringer's (Lr) 1,000 mls @ 150 mls/hr IVCONT .Q6H40M [facility] Last Infusion: 07/11/24 09:37 Dose: 150 mls/hr Documented By: SHERYL Lorazepam (Lorazepam 0.5 Mg Tablet) 0.5 mg PO BEDTIME PRN PRN Reason: Insomnia Last Admin: 07/10/24 22:09 Dose: 0.5 mg Documented By: MAREK-GERMÁN Magnesium Hydroxide (Milk Of Magnesia 30 Ml Oral.Susp) 30 ml PO DAILY PRN PRN Reason: Constipation Melatonin (Melatonin 3 Mg Tablet) 6 mg PO BEDTIME PRN PRN Reason: Insomnia Multivitamins/Vitamin C (Multivitamin Tablet) 1 tab PO DAILY [facility] Last Admin: 07/11/24 08:02 Dose: 1 tab Documented By: SHERYL Ondansetron HCl (Ondansetron Hcl 4 Mg/2 Ml Vial) 4 mg IVPUSH Q8H PRN PRN Reason: Nausea and Vomiting Risperidone (Risperidone 0.5 Mg Tablet) 0.5 mg PO BID [facility] Last Admin: 07/11/24 08:05 Dose: 0.5 mg Documented By: SHERYL Sodium Chloride (0.9 % Sodium Chloride Flush 3 Ml Syringe) 3 ml IVFLUSH QSHIFT [facility] Last Admin: 07/11/24 07:37 Dose: Not Given Documented By: SHERYL Non-Admin Reason: IV Running Labs 07/11/24 08:05 07/11/24 08:05 Labs: Laboratory Results - last 24 hr 07/10/24 07/10/24 07/10/24 10:12 10:13 12:24 MCV 85.7 MCH 29.9 MCHC 34.9 RDW 13.2 Plt Count 274 MPV 10.0 Immature Gran % (Auto) 0.3 Neut % (Auto) 73.5 H Lymph % (Auto) 17.4 L Hand % (Auto) 8.2 Eos % (Auto) 0.3 Baso % (Auto) 0.3 Lymph # (Auto) 1.3 Hand # (Auto) 0.6 Eos # (Auto) 0.0 Baso # (Auto) 0.0 Abs Immat Gran (auto) 0.02 Absolute Neuts (auto) 5.4 Absolute Nucleated RBC 0.000 Nucleated RBC % (auto) 0.0 PT INR Anion Gap 14 Estim Creat Clear Calc 115.8 Estimated GFR > 60 Random Glucose 100 Estimat Average Glucose 103 Hemoglobin A1c % 5.2 Lactic Acid Calcium 9.8 Magnesium 1.9 Total Bilirubin 0.8 AST 438 H ALT 140 H Alkaline Phosphatase 51 Ammonia 58 H Lactate Dehydrogenase Total Creatine Kinase > 26802 H Total Protein 7.8 Albumin 4.9 Triglycerides Cholesterol LDL Cholesterol, Calc HDL Cholesterol Vitamin B12 561 Folate 13.7 TSH Urine Color Yellow Urine Appearance Clear Urine pH 6.0 Ur Specific [place] 1.015 Urine Protein Trace Urine Glucose (UA) Negative Urine Ketones 40 Urine Blood Moderate (2+) H Urine Nitrite Negative Ur Leukocyte Esterase Negative Urine RBC 6-10 H Urine WBC 0-5 Ur Squamous Epith Cells 0-2 Urine Bacteria None Seen Hyaline Casts 0-2 Salicylates < 5.0 L Urine Opiates Screen Not Detected Ur Buprenorphine Scrn Not Detected Ur Oxycodone Screen Not Detected Urine Methadone Screen Not Detected Urine Fentanyl Screen Not Detected Acetaminophen < 3 Ur Barbiturates Screen Not Detected Ur Phencyclidine Scrn Not Detected Ur Amphetamines Screen Not Detected U Benzodiazepines Scrn Not Detected Urine Cocaine Screen Not Detected U Marijuana (THC) Screen Not Detected Ethyl Alcohol < 10 Hepatitis A IgM Ab Nonreactive Hep Bs Antigen Negative Hep Bs Antibody REACTIVE Hep B Core Total Ab Nonreactive Hepatitis C Ab (EIA) Nonreactive 07/10/24 07/11/24 16:42 08:05 MCV 86.9 MCH 29.5 MCHC 34.0 RDW 13.1 Plt Count 279 MPV 10.1 Immature Gran % (Auto) Neut % (Auto) Lymph % (Auto) Hand % (Auto) Eos % (Auto) Baso % (Auto) Lymph # (Auto) Hand # (Auto) Eos # (Auto) Baso # (Auto) Abs Immat Gran (auto) Absolute Neuts (auto) Absolute Nucleated RBC 0.000 Nucleated RBC % (auto) 0.0 PT 13.1 H INR 1.1 Anion Gap 15 Estim Creat Clear Calc 111.4 Estimated GFR > 60 Random Glucose 130 H Estimat Average Glucose Hemoglobin A1c % Lactic Acid 0.8 Calcium 10.1 Magnesium Total Bilirubin 0.7 AST 286 H ALT 132 H Alkaline Phosphatase 50 Ammonia Lactate Dehydrogenase 966 H Total Creatine Kinase 35525 H Total Protein 7.8 Albumin 4.9 Triglycerides 34 Cholesterol 131 LDL Cholesterol, Calc 71 HDL Cholesterol 54 Vitamin B12 Folate TSH 1.05 Urine Color Urine Appearance Urine pH Ur Specific [place] Urine Protein Urine Glucose (UA) Urine Ketones Urine Blood Urine Nitrite Ur Leukocyte Esterase Urine RBC Urine WBC Ur Squamous Epith Cells Urine Bacteria Hyaline Casts Salicylates Urine Opiates Screen Ur Buprenorphine Scrn Ur Oxycodone Screen Urine Methadone Screen Urine Fentanyl Screen Acetaminophen Ur Barbiturates Screen Ur Phencyclidine Scrn Ur Amphetamines Screen U Benzodiazepines Scrn Urine Cocaine Screen U Marijuana (THC) Screen Ethyl Alcohol Hepatitis A IgM Ab Hep Bs Antigen Hep Bs Antibody Hep B Core Total Ab Hepatitis C Ab (EIA) Assessment and Plan (1) Rhabdomyolysis: Status: Acute Plan 23M presented with acute davey found to be in rhabdo Acute rhabdomyolysis Continue aggressive hydration, monitor CPK and BMP Acute davey Suspect drug-induced Appears much more stable now, psychiatry following Low risk for DVT encourage ambulation Full Code reason for continued hospitalization: Aggressive hydration for rhabdo Quality Stroke Does the patient have a stroke diagnosis?: No VTE Prior VTE?: No VTE Risk Level:: Medical - moderate - high VTE Device Contraindication: Treatment Not Indicated VTE Drug Contraindication: N/A - Med Ordered
--- NOTE | 2024-07-11 11:16 | P.PNGI_ITS ---
Subjective Subjective Date of Service: 07/11/24 Interval History: Add on CK yest was > 40k. Likely 2/2 extensive running over the weekend + psychomotor agitation. LFTs trending down. Pt seen at bedside, reports improvement in fatigue. Otherwise no abd pain, N,V. Critical Care Time (minutes): 0 Physical Exam 2 Vital Signs: Vital Signs: Last Vital Signs Temp 98.4 F 07/11/24 07:17 Pulse 111 H 07/11/24 07:17 Resp 18 07/11/24 07:17 BP 132/88 07/11/24 07:17 Pulse Ox 100 07/11/24 07:17 O2 Del Method Room Air 07/11/24 07:17 BMI result Body Mass Index 27.4 No apparent distress Nonicteric Abdomen soft, nondistended Alert and oriented x3, normal gait Objective Data Labs 07/11/24 08:05 07/11/24 08:05 Labs: Laboratory Results - last 24 hr 07/10/24 07/10/24 07/10/24 10:13 12:24 16:42 WBC RBC Hgb Hct MCV MCH MCHC RDW Plt Count MPV Absolute Nucleated RBC Nucleated RBC % (auto) PT INR Sodium Potassium Chloride Carbon Dioxide Anion Gap BUN Creatinine Estim Creat Clear Calc Estimated GFR Random Glucose Estimat Average Glucose 103 Hemoglobin A1c % 5.2 Lactic Acid 0.8 Calcium Total Bilirubin AST ALT Alkaline Phosphatase Ammonia 58 H Lactate Dehydrogenase 966 H Total Creatine Kinase > 53644 H Total Protein Albumin Triglycerides 34 Cholesterol 131 LDL Cholesterol, Calc 71 HDL Cholesterol 54 Vitamin B12 561 Folate 13.7 TSH 1.05 Salicylates < 5.0 L Acetaminophen < 3 Ethyl Alcohol < 10 Hepatitis A IgM Ab Nonreactive Hep Bs Antigen Negative Hep Bs Antibody REACTIVE Hep B Core Total Ab Nonreactive Hepatitis C Ab (EIA) Nonreactive 07/11/24 08:05 WBC 4.9 RBC 5.11 Hgb 15.1 Hct 44.4 MCV 86.9 MCH 29.5 MCHC 34.0 RDW 13.1 Plt Count 279 MPV 10.1 Absolute Nucleated RBC 0.000 Nucleated RBC % (auto) 0.0 PT 13.1 H INR 1.1 Sodium 139 Potassium 4.6 D Chloride 102 Carbon Dioxide 27 Anion Gap 15 BUN 9 Creatinine 1.04 Estim Creat Clear Calc 111.4 Estimated GFR > 60 Random Glucose 130 H Estimat Average Glucose Hemoglobin A1c % Lactic Acid Calcium 10.1 Total Bilirubin 0.7 AST 286 H ALT 132 H Alkaline Phosphatase 50 Ammonia Lactate Dehydrogenase Total Creatine Kinase 12009 H Total Protein 7.8 Albumin 4.9 Triglycerides Cholesterol LDL Cholesterol, Calc HDL Cholesterol Vitamin B12 Folate TSH Salicylates Acetaminophen Ethyl Alcohol Hepatitis A IgM Ab Hep Bs Antigen Hep Bs Antibody Hep B Core Total Ab Hepatitis C Ab (EIA) Procedures Date of Service Date of Service: 07/11/24 Progress Note: A&P Assessment and plan (1) Rhabdomyolysis: Status: Acute (2) Elevated LFTs: Status: Acute Plan Elevated LFTs likely 2/2 acute rhabdo. Trending down today. Management of rhabdo as per primary team. Recommend checking LFTs once daily until transaminases < x5UNL. PETH pending. Will sign off. Please do not hesitate to call back for any questions or concerns. Time Spent With Patient Time: Total time managing care of this patient today ____ minutes. Quality Stroke Does the patient have a stroke diagnosis?: No VTE Prior VTE?: No VTE Risk Level:: Medical - moderate - high VTE Device Contraindication: Treatment Not Indicated VTE Drug Contraindication: N/A - Med Ordered
--- NOTE | 2024-07-11 11:35 | MHC.CM.PN ---
pt lives with his mother he is independent has a ride home e dc plan home n/s
[2024-07-11] MEDS: Lactated Ringers 1,000 ML 150 ML IVCONT ×2 (11:50→23:18)
[2024-07-11 15:49] VITALS: BP 143/92; PULSE 118; RESP 14; TEMP 36.8; O2SAT 99
[2024-07-11] MEDS: LORazepam 1 MG TABLET PO (18:49)
[2024-07-11 20:00] VITALS: BP 142/94; PULSE 114; RESP 18; TEMP 36.1; O2SAT 99
[2024-07-12 04:00] VITALS: BP 168/92; PULSE 115; RESP 16; TEMP 36.6; O2SAT 100
[2024-07-12 06:14] LABS: Hematocrit 41.9 % (42.0-52.0); Hemoglobin 14.1 g/dl (14.0-18.0); Mean Corpuscular HGB Conc 33.7 g/dl (31.0-36.0); Mean Corpuscular Hemoglobin 29.9 pg (27.0-33.0); Mean Corpuscular Volume 88.8 fL (80.0-98.0); Mean Platelet Volume 10.1 fL (9.4-12.4); Platelet Count 246 X10*3/uL (160-400); Red Blood Count 4.72 X10*6/uL (4.60-5.80); Red Cell Distribution Width 13.2 % (11.0-16.0); White Blood Count 5.1 X10*3/uL (4.8-10.8)
[2024-07-12 06:29] LABS: Alanine Aminotransferase 107 U/L (0-40); Albumin Level 4.4 g/dL (3.5-5.0); Anion Gap 14 (12-20); Aspartate Amino Transferase 178 U/L (5-37); Bilirubin Direct 0.1 mg/dL (0.0-0.5); Bilirubin Total 0.6 mg/dL (0.0-1.0); Blood Urea Nitrogen 8 mg/dL (9-16); Calcium 9.5 mg/dL (8.4-10.2); Carbon Dioxide 26 mmol/L (22-29); Chloride 105 mmol/L (96-108); Creatinine Clr Calc Pharmacy 128.7; Estimated Glomerular Filt Rate > 60; Glucose Random 93 mg/dL (60-115); Potassium 4.3 mmol/L (3.3-5.1); Sodium 141 mmol/L (135-145); Total Protein 7.2 g/dL (6.5-8.0)
[2024-07-12 06:34] LABS: Alkaline Phosphatase 45 U/L (39-117)
[2024-07-12] MEDS: Lactated Ringers 1,000 ML 150 ML IVCONT ×3 (06:48→23:16)
[2024-07-12 07:36] VITALS: BP 169/97; PULSE 122; RESP 16; TEMP 36.9; O2SAT 100
[2024-07-12] MEDS: risperiDONE 0.5 MG TABLET PO ×2 (08:18→20:53)
[2024-07-12] MEDS: Multivitamin TABLET 1 TAB PO (08:18)
--- NOTE | 2024-07-12 08:56 | P.PNIM_ITS ---
Subjective Subjective Date of Service: 07/12/24 Interval History: no comlaints Physical Exam 2 Vital Signs: Vital Signs: Last Vital Signs Temp 98.4 F 07/12/24 07:36 Pulse 122 H 07/12/24 07:36 Resp 16 07/12/24 07:36 BP 169/97 H 07/12/24 07:36 Pulse Ox 100 07/12/24 07:36 O2 Del Method Room Air 07/12/24 07:36 BMI result Body Mass Index 27.4 No apparent distress Nonicteric Abdomen soft, nondistended Alert and oriented x3, normal gait Objective Data Active Medications Acetaminophen (Acetaminophen 325 Mg Tablet) 650 mg PO Q6H PRN PRN Reason: Pain, Mild 1-3,fever,headache Calcium Carbonate (Calcium Carbonate 750 Mg Tab.Chew) 750 mg PO Q4H PRN PRN Reason: Heartburn Lactated Ringer's (Lr) 1,000 mls @ 150 mls/hr IVCONT .Q6H40M [facility] Last Admin: 07/12/24 06:48 Dose: 150 mls/hr Documented By: EVAN Lorazepam (Lorazepam 0.5 Mg Tablet) 0.5 mg PO BEDTIME PRN PRN Reason: Insomnia Last Admin: 07/10/24 22:09 Dose: 0.5 mg Documented By: CHRISTOPHE Magnesium Hydroxide (Milk Of Magnesia 30 Ml Oral.Susp) 30 ml PO DAILY PRN PRN Reason: Constipation Melatonin (Melatonin 3 Mg Tablet) 6 mg PO BEDTIME PRN PRN Reason: Insomnia Multivitamins/Vitamin C (Multivitamin Tablet) 1 tab PO DAILY [facility] Last Admin: 07/12/24 08:18 Dose: 1 tab Documented By: LAN Ondansetron HCl (Ondansetron Hcl 4 Mg/2 Ml Vial) 4 mg IVPUSH Q8H PRN PRN Reason: Nausea and Vomiting Risperidone (Risperidone 0.5 Mg Tablet) 0.5 mg PO BID [facility] Last Admin: 07/12/24 08:18 Dose: 0.5 mg Documented By: LAN Sodium Chloride (0.9 % Sodium Chloride Flush 3 Ml Syringe) 3 ml IVFLUSH QSHIFT [facility] Last Admin: 07/12/24 08:19 Dose: Not Given Documented By: LAN Non-Admin Reason: IV Running Labs 07/12/24 05:49 07/12/24 05:49 Labs: Laboratory Results - last 24 hr 07/11/24 07/12/24 08:05 05:49 MCV 88.8 MCH 29.9 MCHC 33.7 RDW 13.2 Plt Count 246 MPV 10.1 Absolute Nucleated RBC 0.000 Nucleated RBC % (auto) 0.0 Anion Gap 15 14 Estim Creat Clear Calc 128.7 Estimated GFR > 60 Random Glucose 93 Calcium 9.5 Total Bilirubin 0.6 Direct Bilirubin 0.1 AST 178 H ALT 107 H Alkaline Phosphatase 45 Total Creatine Kinase 52399 H Total Protein 7.2 Albumin 4.4 Assessment and Plan (1) Rhabdomyolysis: Status: Acute Plan 23M presented with acute davey found to be in rhabdo Acute rhabdomyolysis Continue aggressive hydration, monitor CPK and BMP, now 17K Acute davey Suspect drug-induced Appears much more stable now, psychiatry following, continue risperdal Low risk for DVT encourage ambulation Full Code reason for continued hospitalization: Aggressive hydration for rhabdo Quality Stroke Does the patient have a stroke diagnosis?: No VTE Prior VTE?: No VTE Risk Level:: Medical - moderate - high VTE Device Contraindication: Treatment Not Indicated VTE Drug Contraindication: N/A - Med Ordered
[2024-07-12 15:42] VITALS: BP 149/87; PULSE 124; RESP 18; TEMP 37.1; O2SAT 98
--- NOTE | 2024-07-12 18:10 | PC.NURSE ---
Patient status changed from OBS to inpatient. Medical surgical admission assessment previously completed upon admission to unit. See admission assessment, admission risk assessment, and admission assessment arrival info in completed interventions for detail. Refer to shift assessment documentation for up to date physical assessment information.
[2024-07-12 18:48] VITALS: PULSE 116
--- NOTE | 2024-07-12 18:49 | PC.NURSE ---
Patient's heart rate consistently elevated throughout shift, as high as 124bpm. Heart rate of 116 at change of shift. Patient restless, active, and walking frequently, but denies anxiety. Patient asymptomatic. No complaints. Dr. Stroud aware. PRN ativan ordered for anxiety.
[2024-07-12 20:00] VITALS: BP 155/84; PULSE 119; RESP 17; TEMP 37.2; O2SAT 98
[2024-07-12] MEDS: 0.9 % Sodium Chloride Flush 3 ML SYRINGE IVFLUSH (20:53)
[2024-07-13 03:56] VITALS: BP 169/96; PULSE 110; RESP 18; TEMP 36.8; O2SAT 100
[2024-07-13] MEDS: Lactated Ringers 1,000 ML 150 ML IVCONT ×2 (05:46→12:16)
[2024-07-13 07:27] VITALS: BP 141/95; PULSE 131; RESP 18; TEMP 37.6; O2SAT 97
[2024-07-13] MEDS: Multivitamin TABLET 1 TAB PO (08:17)
[2024-07-13] MEDS: risperiDONE 0.5 MG TABLET PO (08:17)
--- NOTE | 2024-07-13 08:28 | P.PNIM_ITS ---
Subjective Subjective Date of Service: 07/13/24 Interval History: no comlaints Physical Exam 2 Vital Signs: Vital Signs: Last Vital Signs Temp 99.6 F 07/13/24 07:27 Pulse 131 H 07/13/24 07:27 Resp 18 07/13/24 07:27 BP 141/95 H 07/13/24 07:27 Pulse Ox 97 07/13/24 07:27 O2 Del Method Room Air 07/13/24 07:27 BMI result Body Mass Index 27.4 No apparent distress Nonicteric Abdomen soft, nondistended Alert and oriented x3, normal gait Objective Data Active Medications Acetaminophen (Acetaminophen 325 Mg Tablet) 650 mg PO Q6H PRN PRN Reason: Pain, Mild 1-3,fever,headache Calcium Carbonate (Calcium Carbonate 750 Mg Tab.Chew) 750 mg PO Q4H PRN PRN Reason: Heartburn Lactated Ringer's (Lr) 1,000 mls @ 150 mls/hr IVCONT .Q6H40M [facility] Last Admin: 07/13/24 05:46 Dose: 150 mls/hr Documented By: MAURICIO Lorazepam (Lorazepam 0.5 Mg Tablet) 0.5 mg PO BEDTIME PRN PRN Reason: Insomnia Last Admin: 07/10/24 22:09 Dose: 0.5 mg Documented By: CHRISTOPHE Lorazepam (Lorazepam 0.5 Mg Tablet) 0.5 mg PO Q8H PRN PRN Reason: Anxiety Magnesium Hydroxide (Milk Of Magnesia 30 Ml Oral.Susp) 30 ml PO DAILY PRN PRN Reason: Constipation Melatonin (Melatonin 3 Mg Tablet) 6 mg PO BEDTIME PRN PRN Reason: Insomnia Multivitamins/Vitamin C (Multivitamin Tablet) 1 tab PO DAILY [facility] Last Admin: 07/13/24 08:17 Dose: 1 tab Documented By: JAIME Ondansetron HCl (Ondansetron Hcl 4 Mg/2 Ml Vial) 4 mg IVPUSH Q8H PRN PRN Reason: Nausea and Vomiting Risperidone (Risperidone 0.5 Mg Tablet) 0.5 mg PO BID [facility] Last Admin: 07/13/24 08:17 Dose: 0.5 mg Documented By: JAIME Sodium Chloride (0.9 % Sodium Chloride Flush 3 Ml Syringe) 3 ml IVFLUSH QSHIFT [facility] Last Admin: 07/13/24 07:06 Dose: Not Given Documented By: JAIME Non-Admin Reason: IV Running Labs 07/12/24 05:49 07/12/24 05:49 Assessment and Plan (1) Rhabdomyolysis: Status: Acute Plan 23M presented with acute davey found to be in rhabdo Acute rhabdomyolysis Continue aggressive hydration, monitor CPK and BMP, now 14K Acute davey Suspect drug-induced Appears much more stable now, psychiatry following, continue risperdal Low risk for DVT encourage ambulation Full Code reason for continued hospitalization: Aggressive hydration for rhabdo Quality Stroke Does the patient have a stroke diagnosis?: No VTE Prior VTE?: No VTE Risk Level:: Medical - moderate - high VTE Device Contraindication: Treatment Not Indicated VTE Drug Contraindication: N/A - Med Ordered
[2024-07-13 08:42] LABS: Hematocrit 41.7 % (42.0-52.0); Hemoglobin 14.3 g/dl (14.0-18.0); Mean Corpuscular HGB Conc 34.3 g/dl (31.0-36.0); Mean Corpuscular Hemoglobin 29.8 pg (27.0-33.0); Mean Corpuscular Volume 86.9 fL (80.0-98.0); Mean Platelet Volume 9.6 fL (9.4-12.4); Platelet Count 259 X10*3/uL (160-400); Red Cell Distribution Width 12.9 % (11.0-16.0); White Blood Count 4.9 X10*3/uL (4.8-10.8)
[2024-07-13 09:12] LABS: Alanine Aminotransferase 99 U/L (0-40); Albumin Level 4.6 g/dL (3.5-5.0); Alkaline Phosphatase 48 U/L (39-117); Anion Gap 13 (12-20); Aspartate Amino Transferase 127 U/L (5-37); Bilirubin Total 0.6 mg/dL (0.0-1.0); Blood Urea Nitrogen 10 mg/dL (9-16); Carbon Dioxide 25 mmol/L (22-29); Chloride 106 mmol/L (96-108); Creatinine Clr Calc Pharmacy 120.6; Estimated Glomerular Filt Rate > 60; Glucose Random 98 mg/dL (60-115); Potassium 4.1 mmol/L (3.3-5.1); Sodium 140 mmol/L (135-145); Total Protein 7.2 g/dL (6.5-8.0)
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
[2024-07-13 15:34] VITALS: BP 170/99; PULSE 119; RESP 16; TEMP 37.1; O2SAT 98
[2024-07-18 09:04] LABS: PEth Comments SEE COMMENTS
[2024-07-18 09:05] LABS: Phosphatidylethanol 16:0-18:1 NEGATIVE; Phosphatidylethanol 16:0-18:2 NEGATIVE
== END 2024-07-13 15:55 | disposition home or self-care (01) | DRG 351 ==
LOC: HO.ED 10:27 → HO.EDOVER 14:26 → HO.S3 17:09
PROVIDERS: Internal Medicine; Physician Assistant Medical; Social Worker; Admitting Provider Student in an Organized Health Care Education/Training Program; Emergency Provider Emergency Medicine Emergency Medical Services; Visit Provider Internal Medicine
DX: M62.82 Rhabdomyolysis (principal); F30.9 Manic episode, unspecified
CPT/HCPCS: 36415; 76705; 80053; 80061; 80143; 80179; 80307; 80321; 81001; 82140; 82248; 82550; 82607; 82746; 83036; 83605; 83615; 83735; 84443; 84484; 85025; 85027; 85610; 86704; 86706; 86709; 86803; 87340; 93005; 99285; J7120; S9485

== ENCOUNTER → 2024-07-10 09:44 | Outpatient (BNV) | payer OTHER, SELFPAY | PROVIDERS: Admitting Provider Student in an Organized Health Care Education/Training Program; Emergency Provider Emergency Medicine Emergency Medical Services; Visit Provider Internal Medicine | DX: R00.0 Tachycardia, unspecified (principal) | CPT/HCPCS: 93010 ==

== ENCOUNTER → 2024-07-10 11:59 | Outpatient (BNV) | payer OTHER, SELFPAY | PROVIDERS: Emergency Provider Emergency Medicine Emergency Medical Services; Visit Provider Radiology Diagnostic Radiology | DX: R74.01 Elevation of levels of liver transaminase levels (principal) | CPT/HCPCS: 76705 ==

== ENCOUNTER 2024-07-10 15:37 | Outpatient (BNV) | payer OTHER, SELFPAY | END 2024-07-11 18:17 | PROVIDERS: Admitting Provider Student in an Organized Health Care Education/Training Program; Emergency Provider Emergency Medicine Emergency Medical Services; Visit Provider Internal Medicine | DX: R00.0 Tachycardia, unspecified (principal) | CPT/HCPCS: 93010 ==

== ENCOUNTER → 2024-07-10 15:37 | Outpatient (BNV) | payer OTHER, SELFPAY | PROVIDERS: Admitting Provider Student in an Organized Health Care Education/Training Program; Emergency Provider Emergency Medicine Emergency Medical Services; Visit Provider Internal Medicine | DX: M62.82 Rhabdomyolysis (principal) | CPT/HCPCS: 99223; 99233 ==

== ENCOUNTER → 2024-07-10 15:37 | Outpatient (BNV) | payer OTHER, SELFPAY | PROVIDERS: Admitting Provider Student in an Organized Health Care Education/Training Program; Emergency Provider Emergency Medicine Emergency Medical Services; Visit Provider Social Worker | DX: F30.9 Manic episode, unspecified (principal) | CPT/HCPCS: 99232 ==

== ENCOUNTER → 2024-07-10 15:37 | Outpatient (BNV) | payer OTHER, SELFPAY | PROVIDERS: Admitting Provider Student in an Organized Health Care Education/Training Program; Emergency Provider Emergency Medicine Emergency Medical Services; Visit Provider Internal Medicine | DX: R79.89 Other specified abnormal findings of blood chemistry (principal) | CPT/HCPCS: 99222; 99232 ==

== ENCOUNTER 2024-07-15 10:18 | Outpatient (REF) | payer OTHER, SELFPAY ==
--- OUTSIDE RECORDS SUMMARY | 2024-07-15 11:26 | XMS_ITS | Clinical Summary ---
Author Organization [facility] Address [address] [place] [address] Phone Care Team Providers Care Tender Coordinator Name Role Phone Physician, Pcp Unknown Primary Care Provider Shirin vailable Allergies No known active allergies Encounters Date Type Department Care Team Description 07/03/2024 7:13 PM EDT - 07/03/2024 9:32 PM EDT Emergency [facility] Emergency [address] [place] [address] Iban Mathias MD Adverse effect [...] Negative LAB CHEMISTRY METHOD 5 10:[address] [facility] Comment:Certain OTC medicati ons containing ephedrine, phenylephrine, pseudoephedrine and phenylpropanolamine can cause false positive results. Barbiturate Screen, Ur Negative Negative LAB CHEMISTRY METHOD 5 10:[address] [facility] Benzodiazepine Screen, Ur Negative Negative LAB CHEMISTRY METHOD 5 10:[address] [facility] Cocaine Screen, Ur Negative Negative LAB CHEMISTRY METHOD 5 10:[address] [facility] Opiate Screen, Ur Negative Negative LAB CHEMISTRY METHOD 5 10:[address] [facility] Cannabinoid (THC) Screen, Ur Positive(A ) Negative LAB CHEMISTRY METHOD 5 10:[address] [facility] Comment:Specimens from patie nts taking pantoprazole sodium (Protonix) have been shown to produce false positive results. Oxycodone Screen, Ur Negative Negative LAB CHEMISTRY METHOD 5 10:[address] [facility] Fentanyl, Ur Negative Negative LAB CHEMISTRY METHOD 5 10:[address] [facility] Urine Urine specimen obtained by clean catch procedure / Unknown Non-blood Collection / Unknown 07/03/2024 9:09 PM EDT 07/03/2024 9:29 PM EDT [facility] - 07/03/2024 10:01 PM EDT Assay [...] URINE ORDERABLES Final Result Performing Organization Address City/[facility] Co de Phone Number [facility] ([facility] [[email or web address] [address] [place] [address], * ECG 12 lead (07/03/2024 7:12 PM EDT) Ventricular Rate ECG 119 BPM G[facility] Atrial Rate 119 BPM [facility] P-R Interval 120 ms G[facility] QRS Duration 78 ms GEMUSE Q-T Interval 304 ms GEMUSE QTc 427 ms GEMUSE P Wave [place] 76 degrees GEMUSE R [place] 67 degrees GEMUSE T [place] 26 degrees GEMUSE ECG Interpretation Sinus tachycardia Otherwise normal ECG No previous ECGs available Confirmed by ESSIE ELLIOTT ([id number]) on 07/05/2024 6:59:33 AM G[facility] 07/03/2024 7:12 PM EDT 07/05/2024 6:59 AM EDT Iban Mathias MD ECG ORDERABLES Final Resul t Performing Organization Address City/[facility]/ZIP Co de Phone Number G[facility] from Last 3 Months Insurance [employer] [facility] Care Teams Tender Coordinator Relationship Specialty Start Date End Date Physician, Pcp Unknown PCP - General 07/03/24
[2024-07-15 11:38] LABS: Anion Gap 13 (12-20); Blood Urea Nitrogen 10 mg/dL (9-16); Calcium 9.6 mg/dL (8.4-10.2); Carbon Dioxide 26 mmol/L (22-29); Chloride 103 mmol/L (96-108); Estimated Glomerular Filt Rate > 60; Glucose Random 96 mg/dL (60-115); Sodium 138 mmol/L (135-145)
== END 2024-07-15 10:19 | disposition home or self-care (01) ==
LOC: HO.LAB 10:18
PROVIDERS: Visit Provider Internal Medicine
DX: M62.82 Rhabdomyolysis (principal)
CPT/HCPCS: 36415; 80048; 82550

== ENCOUNTER 2024-07-23 14:01 | Outpatient (REF) | payer OTHER, SELFPAY ==
[2024-07-23 14:26] LABS: MANUAL DIFF FLAG NO
--- OUTSIDE RECORDS SUMMARY | 2024-07-23 14:33 | XMS_ITS | Clinical Summary ---
Author Organization [facility] Address [address] [place] [address] Phone Care Team Providers Care Tomato Paste Maker Name Role Phone Physician, Pcp Unknown Primary Care Provider Shirin vailable Allergies No known active allergies Encounters Date Type Department Care Team Description 07/03/2024 7:13 PM EDT - 07/03/2024 9:32 PM EDT Emergency [facility] Emergency [address] [place] [address] Iban Mathias MD Adverse effect [...] Negative LAB CHEMISTRY METHOD 5 10:01 PM [facility] Comment:Certain OTC medicati ons containing ephedrine, phenylephrine, pseudoephedrine and phenylpropanolamine can cause false positive results. Barbiturate Screen, Ur Negative Negative LAB CHEMISTRY METHOD 5 10:01 PM [facility] Benzodiazepine Screen, Ur Negative Negative LAB CHEMISTRY METHOD 5 10:01 PM [facility] Cocaine Screen, Ur Negative Negative LAB CHEMISTRY METHOD 5 10:01 PM [facility] Opiate Screen, Ur Negative Negative LAB CHEMISTRY METHOD 5 10:01 PM [facility] Cannabinoid (THC) Screen, Ur Positive(A ) Negative LAB CHEMISTRY METHOD 5 10:01 PM [facility] Comment:Specimens from patie nts taking pantoprazole sodium (Protonix) have been shown to produce false positive results. Oxycodone Screen, Ur Negative Negative LAB CHEMISTRY METHOD 5 10:01 PM [facility] Fentanyl, Ur Negative Negative LAB CHEMISTRY METHOD 5 10:01 PM [facility] Urine Urine specimen obtained by clean catch procedure / Unknown Non-blood Collection / Unknown 07/03/2024 9:09 PM EDT 07/03/2024 9:29 PM EDT [facility] - 07/03/2024 10:01 PM [...] URINE ORDERABLES Final Result Performing Organization Address City/[facility] Co de Phone Number [facility] [address] [place] [address], * ECG 12 lead (07/03/2024 7:12 PM EDT) Ventricular Rate ECG 119 BPM [facility] Atrial Rate 119 BPM [facility] P-R Interval 120 ms [facility] QRS Duration 78 ms [facility] Q-T Interval 304 ms G[facility] QTc 427 ms GEMUSE P Wave [place] 76 degrees GEMUSE R [place] 67 degrees GEMUSE T [place] 26 degrees GEMUSE ECG Interpretation Sinus tachycardia Otherwise normal ECG No previous ECGs available Confirmed by ESSIE ELLIOTT ([id number]) on 07/05/2024 6:59:33 AM [facility] 07/03/2024 7:12 PM EDT 07/05/2024 6:59 AM EDT Iban Mathias MD ECG ORDERABLES Final Resul t Performing Organization Address City/[facility]/ZIP Co de Phone Number [facility] from Last 3 Months Insurance [employer] [facility] Care Teams Tomato Paste Maker Relationship Specialty Start Date End Date Physician, Pcp Unknown PCP - General 07/03/24
[2024-07-23 14:36] LABS: Basophils Percent Auto 0.6 % (0-2); Eosinophils Absolute Auto 0.1 X10*3/uL (0.0-0.4); Hematocrit 43.5 % (42.0-52.0); Hemoglobin 14.7 g/dl (14.0-18.0); Imm Gran Abs Auto 0.02 X10*3/uL (0.00-0.03); Imm Gran Pct Auto 0.4 % (0.0-0.4); Lymphocytes Absolute Auto 1.3 X10*3/uL (1.2-4.9); Lymphocytes Percent Auto 24.3 % (20-40); Mean Corpuscular HGB Conc 33.8 g/dl (31.0-36.0); Mean Corpuscular Hemoglobin 29.8 pg (27.0-33.0); Mean Corpuscular Volume 88.2 fL (80.0-98.0); Mean Platelet Volume 9.4 fL (9.4-12.4); Monocytes Absolute Auto 0.6 X10*3/uL (0.1-1.2); Monocytes Percent Auto 10.9 % (2-11); Neutrophils Absolute Auto 3.2 x10*3/uL (2.0-8.3); Neutrophils Percent Auto 62.8 % (45-73); Platelet Count 304 X10*3/uL (160-400); Red Blood Count 4.93 X10*6/uL (4.60-5.80); Red Cell Distribution Width 13.4 % (11.0-16.0); White Blood Count 5.2 X10*3/uL (4.8-10.8)
[2024-07-23 15:02] LABS: Alanine Aminotransferase 50 U/L (0-40); Albumin Level 4.9 g/dL (3.5-5.0); Alkaline Phosphatase 54 U/L (39-117); Anion Gap 12 (12-20); Aspartate Amino Transferase 52 U/L (5-37); Bilirubin Total 0.3 mg/dL (0.0-1.0); Blood Urea Nitrogen 9 mg/dL (9-16); Calcium 9.2 mg/dL (8.4-10.2); Carbon Dioxide 28 mmol/L (22-29); Chloride 105 mmol/L (96-108); Estimated Glomerular Filt Rate > 60; Glucose Random 93 mg/dL (60-115); Potassium 4.3 mmol/L (3.3-5.1); Sodium 141 mmol/L (135-145); Total Protein 7.4 g/dL (6.5-8.0)
== END 2024-07-23 14:02 | disposition home or self-care (01) ==
LOC: HO.LAB 14:01
PROVIDERS: Visit Provider Family Medicine
DX: Z87.39 Personal history of other diseases of the musculoskeletal system and connective tissue (principal)
CPT/HCPCS: 36415; 80053; 85025

== ENCOUNTER 2024-07-26 10:14 | Outpatient (REF) | payer OTHER, SELFPAY ==
--- OUTSIDE RECORDS SUMMARY | 2024-07-26 10:17 | XMS_ITS | Clinical Summary ---
Author Organization [facility] Address [address] [place] [address] Phone Care Team Providers Care Commissioning Specialist Name Role Phone Physician, Pcp Unknown Primary Care Provider Shirin vailable Allergies No known active allergies Encounters Date Type Department Care Team Description 07/03/2024 7:13 PM EDT - 07/03/2024 9:32 PM EDT Emergency [facility] Emergency [address] [place] [address] Iban Mathias MD Adverse effect [...] 9:09 PM EDT 07/03/2024 9:29 PM EDT [facility] - 07/03/2024 10:01 PM EDT [...] URINE ORDERABLES Final Result Performing Organization Address City/[facility] Co de Phone Number [facility] [address] [place] [address], * ECG 12 lead (07/03/2024 7:12 PM EDT) Ventricular Rate ECG 119 BPM [facility] Atrial Rate 119 BPM [facility] P-R Interval 120 ms GEM[facility] QRS Duration 78 ms G[facility] Q-T Interval 304 ms GEM[facility] QTc 427 ms GEMUSE P Wave [place] 76 degrees GEMUSE R [place] 67 degrees GEMUSE T [place] 26 degrees GEMUSE ECG Interpretation Sinus tachycardia Otherwise normal ECG No previous ECGs available Confirmed by ESSIE ELLIOTT ([id number]) on 07/05/2024 6:59:33 AM [facility] 07/03/2024 7:12 PM EDT 07/05/2024 6:59 AM EDT Iban Mathias MD ECG ORDERABLES Final Resul t Performing Organization Address City/[facility]/ZIP Co de Phone Number G[facility] from Last 3 Months Insurance [employer] [facility] [address] Care Teams Commissioning Specialist Relationship Specialty Start Date End Date Physician, Pcp Unknown PCP - General 07/03/24
== END 2024-07-26 10:15 | disposition home or self-care (01) ==
LOC: HO.LAB 10:14
PROVIDERS: Visit Provider Family Medicine
DX: Z87.39 Personal history of other diseases of the musculoskeletal system and connective tissue (principal)
CPT/HCPCS: 36415; 82550